=== PATIENT | male | born 1930 | race Caucasian/White ===

== ENCOUNTER 2017-07-02 16:06 | Inpatient (IN) | payer MEDICARE, BC ==
[~2017-07-02] VITALS: Ht 182.9 cm; Wt 68.0 kg
[2017-07-02 16:14] VITALS: BP 104/69
[2017-07-02] MEDS ORDERED: ASPIR 8181 M1 PO (16:18)
[2017-07-02] MEDS ORDERED: CARVEDILOL6.25 MG (16:18)
[2017-07-02] MEDS ORDERED: LIPITOR80 MG PO (16:18)
[2017-07-02] MEDS ORDERED: CELEXA20 MG PO (16:18)
[2017-07-02] MEDS ORDERED: CILOSTAZOL 100100 M1 PO (16:19)
[2017-07-02] MEDS ORDERED: SYNTHROID100 MCG PO (16:19)
[2017-07-02 16:59] LABS: ABSOLUTE EOSINOPHILS 0.1 thou/uL (0.0-0.7); ABSOLUTE LYMPHOCYTES 0.8 thou/uL (0.8-5.3); ABSOLUTE NEUTROPHILS 4.6 thou/uL (1.6-8.1); BASOPHILS 0.6 %; EOSINOPHILS 0.8 %; HEMATOCRIT 40.9 % (42.0-52.0); HEMOGLOBIN 13.8 gm/dL (14.0-18.0); LYMPHOCYTES 12.3 %; MCH 31.8 pg (26.0-34.0); MCHC 33.6 g/dL (28.0-37.0); MCV 94.7 fL (80.0-100.0); MONOCYTES 15.8 %; MPV 9.2 fl. (7.2-11.1); NUCLEATED RBCS 0 /100WBC; PLATELET COUNT* 172 thou/uL (150-400); POLYS 70.5 %; RBC 4.32 mil/uL (4.50-6.00); RDW-CV 13.6 % (10.5-14.5); WBC 6.6 thou/uL (4.0-11.0)
[2017-07-02 17:08] LABS: INFLUENZA B ANTIGEN None Detected (None Detect)
[2017-07-02 17:09] LABS: ANION GAP 8 mmol/L (7-16); BUN 18 mg/dL (7-18); CALCIUM 8.8 mg/dL (8.5-10.1); CHLORIDE 104 mmol/L (98-107); CO2 28 mmol/L (21-32); CREATININE 1.4 mg/dL (0.6-1.3); GLUCOSE 107 mg/dL (70-99); POTASSIUM 4.1 mmol/L (3.5-5.1); SODIUM 140 mmol/L (136-145)
[2017-07-02 17:19] LABS: URINE BILIRUBIN NEGATIVE (Negative); URINE BLOOD 1+ (Negative); URINE COLOR YELLOW; URINE GLUCOSE-RANDOM NEGATIVE (Negative); URINE KETONES NEGATIVE (Negative); URINE LEUKOCYTES-REFLEX NEGATIVE (Negative); URINE NITRITE-REFLEX NEGATIVE (Negative); URINE PROTEIN TRACE (Negative); URINE SPECIFIC GRAVITY 1.025 (1.005-1.030)
[2017-07-02 17:20] LABS: URINE CLARITY SL CLOUDY
[2017-07-02 17:20] LABS: ALBUMIN 3.2 g/dL (3.4-5.0); ALKALINE PHOSPHATASE 114 U/L (46-116); NT-PRO BRAIN NAT PEPTIDE 440 pg/mL (<300); SGOT 31 U/L (15-37); SGPT 17 U/L (30-65); TOTAL BILIRUBIN 0.7 mg/dL (<0.1-1.0); TOTAL PROTEIN 7.5 g/dL (6.4-8.2); TROPONIN-I LEVEL <0.06 ng/mL (<0.06)
[2017-07-02 17:28] LABS: FINE GRANULAR CASTS 0-3 Few /LPF (None Seen); SQUAMOUS 4-10 Moderate /LPF (0-3)
[2017-07-02 17:29] LABS: AMORPHOUS URATES Few /LPF (None Seen); MUCUS 0-3 Light strn/LPF (None Seen); URINE RBC 3-10 Few /HPF (0-2); URINE WBC-REFLEX 0-5 Rare /HPF (0-5)
[2017-07-02 18:29] VITALS: BP 94/64
[2017-07-02 20:00] VITALS: BP 112/71
--- NOTE | 2017-07-03 05:17 | NUR ---
ASSUMED CARE OF PT AT 1900 PT ALERT AND ORIENTED, VS AND ASSESSMENT STABLE. PT DENIED ANY COMPLAINTS AND SLEPT THROUGH THE NIGHT WILL MONITOR.
[2017-07-03 08:00] VITALS: BP 134/65
--- NOTE | 2017-07-03 16:27 | EKG ---
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[place] : 1930 Requested By: Juanjo Li Order Number: [id number] MD: Doug Copeland Measurements Intervals [place] Rate: 78 P: 44 MN: 144 QRS: -5 QRSD: 96 T: 60 QT: 353 QTc: 403 Interpretive Statements Sinus rhythm Probable left atrial enlargement Inferior infarct, old No previous ECG available for comparison Electronically Signed On 07-03-2017 16:27:03 SLICING MACHINE TENDER by Doug Copeland [email or web address] <ELECTRONICALLY SIGNED> By: Doug Copeland MD, [facility] 07/03/17 1627 17 Doug Copeland MD, FACC /EPI
--- NOTE | 2017-07-03 17:20 | NUR ---
AM ASSESSMENT AND VITAL SIGNS COMPLETED DOCUMENTED. PT HAS RESTED MOSTED OF THE DAY, STATES HE HAS NEVER FELT THIS BAD IN HIS LIFE. IV FLUID AND TAMIFLU CONTINUE. PT HAS BEEN TURNED AND REPOSITIONED Q 2 HRS BUT TENDS TO TURN HIMSELF BACK ONTO HIS BACK AND REFUSES TO KEEP HIS HEELS ELEVATED OFF THE MATTRESS. PT EDUCATED ON SKIN BREAKDOWN. HOURLY ROUNDING AND FALL PRECAUTIONS IN PLACE.
[2017-07-03 17:51] VITALS: BP 125/56
[2017-07-04] VITALS: BP 139/67
[2017-07-04 04:13] LABS: CALCIUM 7.9 mg/dL (8.5-10.1); CREATININE 0.9 mg/dL (0.6-1.3); POTASSIUM 3.5 mmol/L (3.5-5.1)
[2017-07-04 04:24] LABS: ABSOLUTE LYMPHOCYTES 1.4 thou/uL (0.8-5.3); ABSOLUTE MONOCYTES 1.1 thou/uL (0.0-1.2); ABSOLUTE NEUTROPHILS 5.3 thou/uL (1.6-8.1); BASOPHILS 0.3 %; EOSINOPHILS 0.4 %; HEMATOCRIT 37.4 % (42.0-52.0); HEMOGLOBIN 12.6 gm/dL (14.0-18.0); LYMPHOCYTES 17.4 %; MCH 31.8 pg (26.0-34.0); MCHC 33.7 g/dL (28.0-37.0); MCV 94.3 fL (80.0-100.0); MONOCYTES 14.5 %; MPV 10.1 fl. (7.2-11.1); NUCLEATED RBCS 0 /100WBC; PLATELET COUNT* 134 thou/uL (150-400); POLYS 67.4 %; RBC 3.97 mil/uL (4.50-6.00); WBC 7.9 thou/uL (4.0-11.0)
--- NOTE | 2017-07-04 07:32 | NUR ---
PT SLEPT WELL OVERNIGHT. TAKING MEDS CRUSHED IN APPLESAUCE WITHOUT DIFFICULTY, THIN LIQUIDS. RFA IVF INFUSING PER PUMP. RECEIVING TAMIFLU ORDERED. SEMINOLE, LEGALLY BLIND, ABLE TO USE CALL LITE AND MAKE NEEDS KNOWN. USING URINAL WITH ASSIST TO VOID. REMAINS ON DROPLET PRECAUTIONS FOR INFLUENZA. BED ALARM ON FOR SAFETY. PT TURNED AND REPOSITIONED HE WOULD ALLOW FOR SKIN CARE AND COMFORT.AO, FORGETFUL.
[2017-07-04 08:15] VITALS: BP 120/64
--- NOTE | 2017-07-04 12:18 | NUR ---
SW met with pt to complete initial assessment, introduce self, and SW role. Pt hard of hearing. Pt alert and oriented and pleasant. Pt anticipates to be able to dc home with . Pt has a cane if needed. Pt said that he just finished care services but did not answer the name of the agency. SW to continue to follow to assist with safe dc planning.
--- NOTE | 2017-07-04 16:17 | NUR ---
PATIENT SAT UP IN CHAIR FROM APPROX 0730 TO 1400 WITHOUT DIFFICULTY TODAY. UP SBA. IVF CONT TO INFUSE. DR. PATIÑO NOTIFIED THAT URINE CULTURE RESULTS AVAILABLE AND IV ABX ORDERED AND INFUSED. VOIDING PER URINAL, LARGE BM NOTED THIS AM. CM NOTIFIED NEED FOR SKILLED BED. HERE THIS AFTERNOON, VERY SUPPORTIVE.
[2017-07-04 20:10] VITALS: BP 127/73
[2017-07-05] VITALS: BP 134/59
--- NOTE | 2017-07-05 04:45 | NUR ---
PT SLEPT AT INTERVALS DURING THE NIGHT, IV FLUIDS INFUSED, USED URINAL WITH ASSIST IN BED, UP TO BSC THIS AM WITH ASSIST FOR BM ATTEMPT, UNSTEADY ON FEET, C/O WEAKNESS WHEN STANDING, CALL LIGHT IN REACH, BED ALARM ON FOR SAFETY, WILL CONTINUE TO MONITOR
[2017-07-05 07:45] VITALS: BP 120/66
--- NOTE | 2017-07-05 09:37 | NUR ---
[facility] received notification of pt needing [facility]. Pt has a history with [facility] and pt/pt would prefer [facility] over [facility]; pt would like to have pt in a facility close to home. [facility] faxed referrals to [facility] and [facility].
[2017-07-05] MEDS ORDERED: TAMIFLU75 MG PO (14:59)
[2017-07-05] MEDS ORDERED: CEFUROXIME500 MG PO (15:00)
[2017-07-05 15:01] VITALS: BP 120/66
--- NOTE | 2017-07-05 15:58 | NUR ---
ORDERS RECEIVED FOR DC TO SNF. MET WITH PT AND . MADE AWARE THAT [facility] HAS NOT BEDS BUT THAT [facility] CAN ACCEPT. STATED IT WAS NOT THEIR FIRST CHOICE BUT THEY WERE AGREEABLE TO THAT. STATED SHE COULD NOT TAKE HIM HOME UNTIL HE IS STRONGER. CHART COPIED. RN HAS NUMBER TO CALL REPORT. SPOKE WITH CAR[facility], THEY WILL ACCEPT TODAY. FAXED ORDERS TO HER. SET UP W/C [facility] FOR 4PM.
--- NOTE | 2017-07-05 16:37 | NUR ---
PATIENT WORKED WITH THERAPY TODAY, UP WITH A CANE AND ASSISTANCE. LARGE BM NOTED THIS AM, PATIENT VOIDING LARGE AMOUNTS OF URINE AT TIMES. IV DC'D, SCHED IV ABX INFUSED THIS AM. AT BEDSIDE AT TRANSFER. REPORT CALLED TO [facility], SPOKE WITH PADMAJA.
== END 2017-07-05 16:38 | DRG 683 ==
LOC: M.ERS 16:06 → M.TBA-ER 17:24 → M.3W 17:24
PROVIDERS: Emergency Medicine; Internal Medicine; ADMIT Internal Medicine
DX: N17.9 Acute kidney failure, unspecified (principal); R65.10 Systemic inflammatory response syndrome (SIRS) of non-infectious origin without acute organ dysfunction; N39.0 Urinary tract infection, site not specified; J11.1 Influenza due to unidentified influenza virus with other respiratory manifestations; E78.5 Hyperlipidemia, unspecified; I10 Essential (primary) hypertension; F32.9 Major depressive disorder, single episode, unspecified; E03.9 Hypothyroidism, unspecified; E86.0 Dehydration; I25.10 Atherosclerotic heart disease of native coronary artery without angina pectoris; Z79.899 Other long term (current) drug therapy; Z95.1 Presence of aortocoronary bypass graft

== ENCOUNTER 2017-08-12 16:55 | Inpatient (IN) | payer MEDICARE, BC ==
[~2017-08-12] VITALS: Ht 182.9 cm; Wt 60.3 kg
[~2017-08-12 16:55] MED LIST: ASPIR 8181 M1 PO; CARVEDILOL6.25 MG; CEFUROXIME500 MG PO; CELEXA20 MG PO; CILOSTAZOL 100100 M1 PO; LIPITOR80 MG PO; SYNTHROID100 MCG PO; TAMIFLU75 MG PO
[2017-08-12 17:04] VITALS: BP 137/86
[2017-08-12 17:42] LABS: ABSOLUTE BASOPHILS 0.1 thou/uL (0.0-0.2); ABSOLUTE EOSINOPHILS 0.3 thou/uL (0.0-0.7); ABSOLUTE LYMPHOCYTES 1.6 thou/uL (0.8-5.3); ABSOLUTE MONOCYTES 0.6 thou/uL (0.0-1.2); ABSOLUTE NEUTROPHILS 5.6 thou/uL (1.6-8.1); BASOPHILS 0.7 %; EOSINOPHILS 3.1 %; HEMATOCRIT 41.1 % (42.0-52.0); HEMOGLOBIN 13.7 gm/dL (14.0-18.0); LYMPHOCYTES 19.7 %; MCH 31.4 pg (26.0-34.0); MCHC 33.3 g/dL (28.0-37.0); MCV 94.4 fL (80.0-100.0); MONOCYTES 7.7 %; MPV 9.7 fl. (7.2-11.1); NUCLEATED RBCS 0 /100WBC; PLATELET COUNT* 199 thou/uL (150-400); POLYS 68.8 %; RBC 4.35 mil/uL (4.50-6.00); RDW-CV 15.2 % (10.5-14.5); WBC 8.2 thou/uL (4.0-11.0)
[2017-08-12 17:48] LABS: ANION GAP 7 mmol/L (7-16); BUN 20 mg/dL (7-18); CHLORIDE 104 mmol/L (98-107); CO2 30 mmol/L (21-32); CREATININE 1.2 mg/dL (0.6-1.3); GLUCOSE 102 mg/dL (70-99); POTASSIUM 4.3 mmol/L (3.5-5.1); SODIUM 141 mmol/L (136-145)
[2017-08-12 17:55] LABS: ALBUMIN 3.2 g/dL (3.4-5.0); ALKALINE PHOSPHATASE 102 U/L (46-116); SGOT 27 U/L (15-37); SGPT 18 U/L (30-65); TOTAL BILIRUBIN 0.5 mg/dL (<0.1-1.0); TOTAL PROTEIN 7.7 g/dL (6.4-8.2); TROPONIN-I LEVEL <0.06 ng/mL (<0.06)
[2017-08-12 18:11] VITALS: BP 134/70
[2017-08-13 00:53] VITALS: BP 124/69
[2017-08-13 07:30] VITALS: BP 140/83
--- NOTE | 2017-08-13 12:33 | EKG ---
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[place] : 1930 Requested By: Maryam Son Order Number: [id number] MD: Thanh Villaseñor Measurements Intervals [place] Rate: 61 P: 45 MD: 157 QRS: -9 QRSD: 93 T: 45 QT: 409 QTc: 412 Interpretive Statements Sinus rhythm Baseline wander in lead(s) II,III,aVF Compared to ECG 07/02/2017 16:18:13 Myocardial infarct finding no longer present Electronically Signed On 08-13-2017 12:33:19 GEOPHYSICAL MANAGER by Thanh Villaseñor [email or web address] <ELECTRONICALLY SIGNED> By: Thanh Villaseñor MD, [facility] 08/13/17 1233 1728 1728 Thanh Villaseñor MD, [facility] /EPI
[2017-08-13] MEDS ORDERED: NYSTATIN100000 UNI PO (16:19)
[2017-08-13] MEDS ORDERED: MIRALAX17 GM PO (16:20)
[2017-08-13 16:21] VITALS: BP 140/83
== END 2017-08-13 16:50 | disposition home or self-care (01) | DRG 389 ==
LOC: M.ERS 16:55 → M.TBA-ER 20:10 → M.ORTHSURG 21:35
PROVIDERS: Physician Assistant; ADMIT Family Medicine
DX: K56.41 Fecal impaction (principal); E44.1 Mild protein-calorie malnutrition; E78.5 Hyperlipidemia, unspecified; I10 Essential (primary) hypertension; F32.9 Major depressive disorder, single episode, unspecified; E03.9 Hypothyroidism, unspecified; R53.81 Other malaise; Z95.1 Presence of aortocoronary bypass graft